=== PATIENT | male | born 1990 | race Hispanic/Latino ===

== ENCOUNTER 2024-10-12 22:28 | Emergency (ER) | payer BC, OTHER ==
--- OUTSIDE RECORDS SUMMARY | 2024-10-12 22:31 | XMS REPORT | Continuity of Care Document ---
Author Name Unknown Address [address] [facility] [address] [place] [address] [facility] Address [address] [place] [address] Care Team Providers Care Leather Fitter Name Role Phone Alayna Medina Attending Clinician Unavailabl e Doctor Unassigned, [place] Attending Clinician U ANDREA Branch Attending Clinician Unavailable RODRIGO ALSTON Attending Clinician Unavailable Payers Payer Name Policy Type Policy Number Effective Date Expirati on Date Source Allergies, Adverse Reactions, Alerts Allergy Name Allergy Type Status Severity Reaction(s) Onset Date Inactive Date Treating Clinician Comments Source NO KNOWN ALLERGIE S Drug Class Active [facility] Social History Social Habit Start Date Stop Date Quantity Comments Source Sexual orientation U [facility] Exposure to SARS-CoV-2 (event) 2019-09-08 00:00:00 2019-10-08 11:40:00 Not sure [facility] Sex Assigned At 1990 00:00:00 1990 00:00:00 [facility] Smoking Status Start Date Stop Date Source Tobacco smoking consumption unknown [facility] Encounters Start Date/Time End Date/Time Encounter Type Admission Type Attending Clinicians Care Facility Care Department Encounter ID Source 2021-04-01 10:58:23 Outpatient Alayna Medina [facility] [id number] [facility] 2019-10-09 00:00:00 2019-10-09 00:00:00 Patient Secure Msg Doctor Unassigned, [place] [facility] [id number] [facility] 2019-10-08 11:40:00 2019-10-08 11:40:00 Outpatient ANDREA TINEO [facility] [id number] [facility] 2019-09-24 11:00:00 2019-09-24 11:00:00 Outpatient RODRIGO LEAL [facility] [id number] [facility]
[2024-10-12] MEDS ORDERED: ONDANSETRON 4 MG/2 ML VIAL ONE (23:02)
[2024-10-12] MEDS ORDERED: KETOROLAC 30 MG/ML INJ ONE (23:02)
[2024-10-12] MEDS ORDERED: MORPHINE 4 MG/ML SYR ONE (23:02)
[2024-10-12] MEDS ORDERED: NA CHLORIDE 0.9% 1,000 ML ONE (23:02)
[2024-10-12 23:16] LABS: Absolute Lymphocytes (CBC) 2.7 K/uL (0.7-4.9); Hematocrit 42.3 % (39.6-49.0); Hemoglobin 14.6 g/dL (13.6-17.9); MCH 29.4 pg (27.0-35.0); MCHC 34.4 g/dL (32.0-36.0); MCV 85.4 fL (80-100); MPV 8.6 fL (7.6-11.3); Nucleated RBC Absolute Count 0.0 (0-0); Nucleated Red Blood Cells % 0.1 % (0-0); RBC Red Blood Cell Count 4.95 M/uL (4.33-5.43); White Blood Count 17.80 thou/uL (4.3-10.9)
[2024-10-12 23:19] LABS: Sqamous Epithelial None Seen /HPF (None Seen); Urine Micro Reflex YN NO BILL MICROSCOPIC
[2024-10-12 23:27] LABS: ALT/SGPT 50.0 U/L (16-61); AST/SGOT 23.0 U/L (15-37); Albumin 3.9 g/dL (3.4-5.0); Albumin/Globulin Ratio 1.1 (1.1-1.8); Alkaline Phosphatase 84.0 U/L (45-117); Anion Gap 14.1 mEq/L (5.0-15.0); BUN Blood Urea Nitrogen 16.0 mg/dL (7-18); Globulin 3.4 g/dL (2.3-3.5); Glucose Level 101.0 mg/dL (74-106); Lipase 57.0 U/L (13-75); Potassium 3.1 mEq/L (3.5-5.1)
--- NOTE | 2024-10-13 01:26 | RAD REPORT ---
EXAM: CT Abdomen and Pelvis With Intravenous Contrast CLINICAL HISTORY: left pelvic pain, scrotal pain TECHNIQUE: Axial computed tomography images of the abdomen and pelvis with intravenous contrast. Sagittal and coronal reformatted images were created and reviewed. This CT exam was performed using one or more of the following dose reduction techniques: automated exposure control, adjustment of the mA a nd/or kV according to patient size, and/or use of iterative reconstruction technique. COMPARISON: No relevant prior studies available. FINDINGS: Lung bases: Unremarkable. No mass. No consolidation. ABDOMEN: Liver: Unremarkable. No mass. Gallbladder and bile ducts: Unremarkable. No calcified stones. No ductal dilation. Pancreas: Unremarkable. No mass. No ductal dilation. Spleen: Unremarkable. No splenomegaly. Adrenals: Unremarkable. No mass. Kidneys and ureters: Unremarkable. Normal renal cortical enhancement. No calculi. No hydronephros is. Stomach and bowel: Unremarkable. No obstruction. No mucosal thickening. PELVIS: Appendix: Normal caliber appendix. No findings to suggest acute appendicitis. Bladder: Mild urinary bladder wall thickening. Reproductive: Unremarkable as visualized. ABDOMEN and PELVIS: Intraperitoneal space: Unremarkable. No free air. No significant fluid collection. Bones/joints: Chronic bilateral pars interarticularis defects at L5 with associated grade 1-2 spond ylolisthesis of L5 on S1. Moderate degenerative changes at this level. No acute fracture. No dislocation. Soft tissues: Unremarkable. Vasculature: Unremarkable. No abdominal aortic aneurysm. Lymph nodes: Unremarkable. No enlarged lymph nodes. IMPRESSION: 1. Mild urinary bladder wall thickening. Please correlate clinically for cystitis. 2. Other findings as above. Electronically signed by: Erlin Goss MD 10/13/2024 01:02 AM [facility] Due to temporary technical issues with the PACS/Insticator reporting system, reports are being marietta d by the in-house radiologist without review as a courtesy to ensure prompt reporting the interpreting radiologist is fully responsible for the content of the report. Transcribed Date/Time: 10/13/2024 1:26 AM
--- NOTE | 2024-10-13 02:18 | RAD REPORT ---
PROCEDURE: US Scrotum CLINICAL INDICATION: The patient is 34 years old and is Male; Testicular pain. TECHNIQUE: Real-time ultrasound of the scrotum with color Doppler and image documentation. COMPARISON: CT Abdomen pelvis 10/12/2024. FINDINGS: RIGHT TESTICLE: Both testes demonstrate normal internal blood flow and low resistance waveforms, wi thout evidence of torsion. The right testicle measures 3.1 x 3.8 x 2.3 cm. LEFT TESTICLE: The left testicle measures 3.1 x 4 x 2.7 cm. EPIDIDYMIDES: 0.25 cm left epididymal head cysts incidentally demonstrated. SCROTUM: Left-sided varicoceles. IMPRESSION: 1. No acute findings in the scrotum. No evidence of torsion. 2. Left-sided varicoceles. Electronically signed by: Adryan Ortiz MD 10/13/2024 02:07 AM CDT Due to temporary technical issues with the PACS/[employer] reporting system, reports are being marietta d by the in-house radiologist without review as a courtesy to ensure prompt reporting the interpreting radiologist is fully responsible for the content of the report. Transcribed Date/Time: 10/13/2024 2:18 AM
--- NOTE | 2024-10-13 02:27 | EDPHYS ---
Physician Documentation [facility] Name: Jose Martin Roberts Age: 34 yrs Sex: Male : 1990 Arrival Date: 10/12/2024 Time: 22:28 Bed 16 Private MD: ED Physician Sudeep Barclay HPI: 10/12 22:44 This 34 yrs old Male presents to ER via Unassigned with complaints of Pelvic sp4 Pain. 10/13 06:44 34-year-old male presents with acute onset of left testicular and pelvic pain. sp4 Patient states he has had vasectomy 3 weeks ago in [place]. Patient now presents with moderate pain left upper testicle and left groin.. Historical: - Allergies: 10/12 22:50 No Known Allergies; kd3 - Immunization history:: Adult Immunizations up to date. - Infectious Disease History:: Denies. - Social history:: Smoking status: Patient denies any tobacco usage or history of. - Family history:: not pertinent. ROS: 10/13 06:44 Constitutional: Negative for fever, chills, and weight loss, positive left testicular sp4 pain All other systems are negative, Exam: 06:44 Constitutional: This is a well developed, well nourished patient who is awake, alert, sp4 and in no acute distress. Head/Face: Normocephalic, atraumatic. Eyes: Pupils equal round and reactive to light, extra-ocular motions intact. Lids and lashes normal. Conjunctiva and sclera are not injected. Cornea within normal limits. Periorbital areas with no swelling, redness, or edema. ENT: Nares patent. No nasal discharge, no septal abnormalities noted. Tympanic membranes are normal and external auditory canals are clear. Oropharynx with no redness, swelling, or masses, exudates, or evidence of obstruction, uvula midline. Mucous membranes moist. Neck: Trachea midline, no thyromegaly or masses palpated, and no cervical lymphadenopathy. Supple, full range of motion without nuchal rigidity, or vertebral point tenderness. Chest/axilla: Normal chest wall appearance and motion. Nontender with no deformity. No lesions are appreciated. Cardiovascular: Regular rate and rhythm with a normal S1 and S2. No gallops, murmurs, or rubs. No pulse deficits. Respiratory: Lungs have equal breath sounds bilaterally, clear to auscultation and percussion. No rales, rhonchi or wheezes noted. No increased work of breathing, no retractions or nasal flaring. Abdomen/GI: Soft, with normal bowel sounds. No distension or tympany. No guarding or rebound. No evidence of tenderness throughout. Back: No spinal tenderness. No costovertebral tenderness. Male : Normal genitalia with no discharge or lesions. Positive for left testicular pain. Skin: Warm, dry with normal turgor. Normal color with no rashes, no lesions, and no evidence of cellulitis. MS/ Extremity: Pulses equal, no cyanosis. Neurovascular intact. Full, normal range of motion. Neuro: Awake and alert, GCS 15, oriented to person, place, time, and situation. Cranial nerves II-XII grossly intact. Motor strength 5/5 in all extremities. Sensory grossly intact. Psych: Awake, alert, with orientation to person, place and time. Behavior, mood, and affect are within normal limits Vital Signs: 10/12 22:48 BP 152 / 100; Pulse 82; Resp 16; Temp 98.2(O); Pulse Ox 100% on R/A; Weight 79.38 kg; kd3 Height 5 ft. 8 in. ; 23:00 BP 132 / 88; Pulse 87; Resp 18; Pulse Ox 99% ; Pain 10/10; rg5 10/13 02:35 BP 134 / 90; Pulse 88; Resp 18; Pulse Ox 100% on R/A; kd3 10/12 22:48 Body Mass Index 26.61 (79.38 kg, 172.72 cm) kd3 23:00 Pain Scale: Adult rg5 Delfino Coma Score: 06:44 Eye Response: spontaneous(4). Motor Response: obeys commands(6). Verbal Response: sp4 oriented(5). Total: 15. MDM: 10/12 22:54 Medical Screening Exam initiated sp4 10/13 01:25 ED course: EXAM: CTAbdomen and Pelvis With Intravenous Contrast CLINICAL HISTORY: left sp4 pelvic pain, scrotal pain TECHNIQUE: Axial computed tomography images of the abdomen and pelvis with intravenous contrast. Sagittal and coronal reformatted images were created and reviewed. This CT exam was performed using one or more of the following dose reduction techniques: automated exposure control, adjustment of the mA and/or kV according to patient size, and/or use of iterative reconstruction technique. COMPARISON: No relevant prior studies available. FINDINGS: Lung bases: Unremarkable. No mass. No consolidation. ABDOMEN: Liver: Unremarkable. No mass. Gallbladder and bile ducts: Unremarkable. No calcified stones. No ductal dilation. Pancreas: Unremarkable. No mass. No ductal dilation. Spleen: Unremarkable. No splenomegaly. Adrenals: Unremarkable. No mass. Kidneys and ureters: Unremarkable. Normal renal cortical enhancement. No calculi. No hydronephrosis. Stomach and bowel: Unremarkable. No obstruction. No mucosal thickening. PELVIS: Appendix: Normal caliber appendix. No findings to suggest acute appendicitis. Bladder: Mild urinary bladder wall thickening. Reproductive: Unremarkable as visualized. ABDOMEN and PELVIS: Intraperitoneal space: Unremarkable. No free air. No significant fluid collection. Bones/joints: Chronic bilateral pars interarticularis defects at L5 with associated grade 1-2 spondylolisthesis of L5 on S1. Moderate degenerative changes at this level. No acute fracture. No dislocation. Soft tissues: Unremarkable. Vasculature: Unremarkable. No abdominal aortic aneurysm. Lymph nodes: Unremarkable. No enlarged lymph nodes. IMPRESSION: 1. Mild urinary bladder wall thickening. Please correlate clinically for cystitis. 2. Other findings as above. Electronically signed by: Erlin Goss MD 10/13/2024 01:02 AM. 02:22 ED course: PROCEDURE: US Scrotum CLINICAL INDICATION: The patient is 34 years old and sp4 is Male; Testicular pain. TECHNIQUE: Real-time ultrasound of the scrotum with color Doppler and image documentation. COMPARISON: CTAbdomen pelvis 10/12/2024. FINDINGS: RIGHT TESTICLE: Both testes demonstrate normal internal blood flow and low resistance waveforms, without evidence of torsion. The right testicle measures 3.1 x 3.8 x 2.3 cm. LEFT TESTICLE: The left testicle measures 3.1 x 4 x 2.7 cm. EPIDIDYMIDES: 0.25 cm left epididymal head cysts incidentally demonstrated. SCROTUM: Left-sided varicoceles. IMPRESSION: 1. No acute findings in the scrotum. No evidence of torsion. 2. Left-sided varicoceles. . 06:46 Differential diagnosis: Prostatitis, Testicular Torsion, Ureterolithiasis, urinary sp4 tract infection. Data reviewed: vital signs, nurses notes, lab test result(s), radiologic studies, CT scan, ultrasound. Consideration of Admission/Observation Escalation of care including admission/observation considered. 10/12 22:53 Order name: CBC with Diff; Complete Time: :22 sp4 10/12 22:53 Order name: CMP; Complete Time: :22 sp4 10/12 22:53 Order name: Lipase; Complete Time: 01:22 sp4 10/12 22:53 Order name: UA W/ Microscopic; Complete Time: : sp4 10/12 22:53 Order name: US Scrotum Testicles sp4 10/12 22:53 Order name: CT Abd/Pelvis - IV Contrast Only; Complete Time: 02:06 sp4 10/12 22:53 Order name: IV Saline Lock; Complete Time: 22:58 sp4 10/12 22:53 Order name: Labs collected and sent; Complete Time: 22:58 sp4 Administered Medications: 10/12 23:10 Drug: TORadol - Ketorolac IVP 30 mg IVP once Route: IVP; Site: left antecubital; rg5 23:59 Follow up: Response: No adverse reaction; Pain is decreased rg5 23:10 Drug: Ondansetron IVP 4 mg IVP once; over 2 minutes Route: IVP; Site: left antecubital; rg5 23:58 Follow up: Response: No adverse reaction; Pain is decreased rg5 23:10 Drug: NS 0.9% IV 1000 ml IV at 1 bolus Per protocol; to be given as a bolus over 60 rg5 minutes Route: IV; Rate: 1 bolus; Site: left antecubital; 23:11 Drug: morphine IVP or IV 4 mg IVP once over 4 mins Route: IVP; Infused Over: 4 mins; rg5 Site: left antecubital; 23:59 Follow up: Response: No adverse reaction; Pain is decreased rg5 Disposition: 10/13 06:46 Chart complete. sp4 Disposition Summary: 10/13/24 02:26 Discharge Ordered Notes: We recommend bed rest for 3 days Location: Home sp4 Problem: new sp4 Symptoms: have improved sp4 Condition: Stable sp4 Diagnosis - Acute left testicular pain, left varicocele sp4 Followup: sp4 - With: Private Physician - When: 7 - 10 days - Reason: Recheck today's complaints Discharge Instructions: - Discharge Summary Sheet sp4 - Varicocele sp4 Forms: - Work release form sp4 - Patient Portal Instructions sp4 Prescriptions: - meloxicam 15 mg Oral tablet - take 1 tablet ORAL route daily PRN pain; 30 tablet; Refills: 0, Product sp4 Selection Permitted - Tramadol 50 mg Oral tablet - take 1 tablet ORAL route every 8 hours as needed; 20 tablet; Refills: 0, sp4 Product Selection Permitted - ondansetron 8 mg Oral Tablet,disintegrating - take 1 tablet ORAL route every 8 hours; 30 tablet; Refills: 0, Product sp4 Selection Permitted Signatures: Dispatcher [employer] EDMS Joann Bowman RN RN kd3 Sudeep Barclay MD MD sp4 Meng Ahumada RN RN rg5 Corrections: (The following items were deleted from the chart) 10/12 22:54 22:54 CBC+H.LAB.BRZ ordered. EDMS EDMS 22:54 22:54 COMPREHENSIVE METABOLIC PANEL+C.LAB.BRZ ordered. EDMS EDMS 22:54 22:54 LIPASE+C.LAB.BRZ ordered. EDMS EDMS 22:54 22:54 Abdomen Pelvis W Con+CT.RAD.BRZ ordered. EDMS EDMS 22:54 22:54 UA W/ Microscopic+U.LAB.BRZ ordered. EDMS EDMS
--- NOTE | 2024-10-13 02:27 | ER ---
Nurse's Notes [facility] Name: Jose Martin Roberts Age: 34 yrs Sex: Male : 1990 Arrival Date: 10/12/2024 Time: 22:28 Bed 16 Private MD: Diagnosis: Acute left testicular pain, left varicocele Presentation: 10/12 22:48 Chief complaint: Patient states: I got a vasectomy exactly 3 weeks ago and everything kd3 was going great until today. I walked around the [employer] today and saw a movie with my and i left the movie about an hour ago and my left testicle and my pelvis hurts. It very sharp pain. Coronavirus screen: Vaccine status: Patient reports being unvaccinated. Ebola Screen: No symptoms or risks identified at this time. Initial Sepsis Screen: Does the patient meet any 2 criteria? No. Patient's initial sepsis screen is negative. Does the patient have a suspected source of infection? No. Patient's initial sepsis screen is negative. Risk Assessment: Do you want to hurt yourself or someone else? Patient reports no desire to harm self or others. Onset of symptoms was October 12, 2024. 22:48 Method Of Arrival: Wheelchair kd3 22:48 Acuity: LOCO 3 kd3 Triage Assessment: 22:50 General: Appears uncomfortable, Behavior is calm, cooperative. Pain: Complains of pain kd3 in left testicle. Historical: - Allergies: 22:50 No Known Allergies; kd3 - Immunization history:: Adult Immunizations up to date. - Infectious Disease History:: Denies. - Social history:: Smoking status: Patient denies any tobacco usage or history of. - Family history:: not pertinent. Screenin:11 [facility] ED Fall Risk Assessment (Adult) History of falling in the last 3 months, rg5 including since admission No falls in past 3 months (0 pts) Confusion or Disorientation No (0 pts) Intoxicated or Sedated No (0 pts) Impaired Gait No (0 pts) Mobility Assist Device Used No (0 pt) Altered Elimination No (0 pt) Score/Fall Risk Level 0 - 2 = Low Risk. Abuse screen: Denies threats or abuse. Nutritional screening: No deficits noted. Tuberculosis screening: No symptoms or risk factors identified. Assessment: 23:11 General: Appears uncomfortable, Behavior is calm, cooperative, appropriate for age. rg5 Pain: Complains of pain in groin Pain currently is 10 out of 10 on a pain scale. Quality of pain is described as aching. Neuro: Level of Consciousness is awake, alert, obeys commands, Oriented to person, place, time. Cardiovascular: Denies chest pain, Patient's skin is warm and dry. Respiratory: Airway is patent Trachea midline Breath sounds are clear. GI: Abdomen is round non-distended. : Reports Scrotal pain: sudden onset. EENT: No signs and/or symptoms were reported regarding the EENT system. Derm: Skin is intact, Skin is dry, Skin is normal. Musculoskeletal: Circulation, motion, and sensation intact. Range of motion: intact in all extremities. 10/13 00:02 Reassessment: No changes from previously documented assessment. Patient and/or family rg5 updated on plan of care and expected duration. Pain level reassessed. Patient is alert, oriented x 3, equal unlabored respirations, skin warm/dry/pink. Vital Signs: 10/12 22:48 BP 152 / 100; Pulse 82; Resp 16; Temp 98.2(O); Pulse Ox 100% on R/A; Weight 79.38 kg; kd3 Height 5 ft. 8 in. ; 23:00 BP 132 / 88; Pulse 87; Resp 18; Pulse Ox 99% ; Pain 10/10; rg5 10/13 02:35 BP 134 / 90; Pulse 88; Resp 18; Pulse Ox 100% on R/A; kd3 10/12 22:48 Body Mass Index 26.61 (79.38 kg, 172.72 cm) kd3 23:00 Pain Scale: Adult rg5 Delfino Coma Score: 06:44 Eye Response: spontaneous(4). Motor Response: obeys commands(6). Verbal Response: sp4 oriented(5). Total: 15. ED Course: 10/12 22:31 Patient arrived in ED. al6 22:44 Sudeep Barclay MD is Attending Physician. sp4 22:46 Meng Ahumada RN is Primary Nurse. rg5 22:50 Triage completed. kd3 22:50 Arm band placed on right wrist. kd3 22:58 Inserted saline lock: 18 gauge in left antecubital area, using aseptic technique. Blood ts3 collected. Flushed with 10 mL NS. 22:58 Initial lab(s) drawn, by ED staff, sent to lab. ts3 22:58 Urine collected: clean catch specimen, SENT TO LAB. ts3 23:11 Patient has correct armband on for positive identification. Bed in low position. Call rg5 light in reach. Side rails up X 1. Door closed. Noise minimized. Warm blanket given. 23:11 No provider procedures requiring assistance completed. rg5 23:15 US Scrotum Testicles In Process Unspecified. EDMS 23:40 CT Abd/Pelvis - IV Contrast Only In Process Unspecified. EDMS 10/13 02:36 Provided Education on: pain medications . kd3 02:36 IV discontinued, intact, bleeding controlled, No redness/swelling at site. Pressure kd3 dressing applied. Administered Medications: 10/12 23:10 Drug: TORadol - Ketorolac IVP 30 mg IVP once Route: IVP; Site: left antecubital; rg5 23:59 Follow up: Response: No adverse reaction; Pain is decreased rg5 23:10 Drug: Ondansetron IVP 4 mg IVP once; over 2 minutes Route: IVP; Site: left antecubital; rg5 23:58 Follow up: Response: No adverse reaction; Pain is decreased rg5 23:10 Drug: NS 0.9% IV 1000 ml IV at 1 bolus Per protocol; to be given as a bolus over 60 rg5 minutes Route: IV; Rate: 1 bolus; Site: left antecubital; 23:11 Drug: morphine IVP or IV 4 mg IVP once over 4 mins Route: IVP; Infused Over: 4 mins; rg5 Site: left antecubital; 23:59 Follow up: Response: No adverse reaction; Pain is decreased rg5 Medication: 23:11 VIS not applicable for this client. rg5 Outcome: 10/13 02:26 Discharge ordered by . paola 02:35 Discharged to home ambulatory, kd3 02:35 Condition: stable 02:35 Discharge instructions given to patient, family, Instructed on discharge instructions, follow up and referral plans. medication usage, Demonstrated understanding of instructions, follow-up care, medications, Prescriptions given X 3, 02:36 Patient left the ED. kd3 Signatures: Dispatcher [facility] Joann Bowman, RN RN kd3 Sudeep Barclay MD MD sp4 Meng Ahumada, ALAN RN rg5 Margot Merino al6 Cristina Duckworth ts3
[2024-10-13 02:54] VITALS: TEMP 98.2
[2024-10-13 03:03] VITALS: BP 134/90; O2SAT 100
== END 2024-10-13 02:36 | disposition home or self-care (01) ==
LOC: ER 22:28
DX: I86.1 Scrotal varices (principal); Z98.52 Vasectomy status
CPT/HCPCS: 85025; 81001; 36415; 83690; 80053; 74177; 76870; 96375; 96374; 99284; Q9967; J2405; J7030